=== PATIENT | male | born 1985 | race Two or more races ===

== ENCOUNTER 2025-05-20 05:56 | Emergency (ER) | payer MEDICAID, SELFPAY ==
--- NOTE | ~2025-05-20 | XR_ITS ---
CLINICAL HISTORY: pain - PT UNABLE TO REMOVE BRACELETS FOR EXAM 2 views right forearm Comparison: None Findings: Nondisplaced hairline fracture distal shaft of the ulna No periostitis or bony destruction. Normal bone mineraliztion and soft tissues. Bracelets were not removed obscuring the wrist and distal radius and ulna Impression: 1. Nondisplaced hairline fracture mid to distal shaft of the ulna This document has been electronically signed by: Ori Bernard MD on 05/20/2025 07:14:59
[2025-05-20 06:01] VITALS: BP 171/72; PULSE 88; RESP 20; TEMP 36.4; O2SAT 97; BMI 27.7
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
[2025-05-20 08:20] VITALS: BP 150/65; PULSE 74; RESP 18; TEMP 36.8; O2SAT 95
[2025-05-20 09:47] VITALS: BP 150/65; PULSE 74; RESP 18; TEMP 36.8; O2SAT 95
== END 2025-05-20 09:48 | disposition home or self-care (01) ==
PROVIDERS: Emergency Provider Emergency Medicine
DX: S52.201A Unspecified fracture of shaft of right ulna, initial encounter for closed fracture (principal); W22.09XA Striking against other stationary object, initial encounter; Y93.89 Activity, other specified; Y92.89 Other specified places as the place of occurrence of the external cause; Y99.9 Unspecified external cause status; M79.601 Pain in right arm
CPT/HCPCS: 73090; 96372; 99284; J1885

== ENCOUNTER → 2025-05-20 06:10 | Outpatient (BNV) | payer MEDICAID, SELFPAY | PROVIDERS: Emergency Provider Emergency Medicine; Visit Provider Radiology Diagnostic Radiology | DX: S52.601A Unspecified fracture of lower end of right ulna, initial encounter for closed fracture (principal) | CPT/HCPCS: 73090 ==

== ENCOUNTER 2025-05-25 10:41 | Outpatient (AMB) | payer MEDICAID, SELFPAY ==
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
[2025-05-25 11:00] VITALS: BMI 27.7
== END 2025-05-25 13:21 | disposition home or self-care (01) ==
LOC: HO.HOS 10:42
PROVIDERS: Visit Provider Orthopaedic Surgery
DX: S52.201A Unspecified fracture of shaft of right ulna, initial encounter for closed fracture (principal)
CPT/HCPCS: 25530; 99204

== ENCOUNTER → 2025-05-25 10:43 | Outpatient (BNV) | payer MEDICAID, SELFPAY | PROVIDERS: Visit Provider Radiology Diagnostic Radiology | DX: S52.221A Displaced transverse fracture of shaft of right ulna, initial encounter for closed fracture (principal) | CPT/HCPCS: 73090 ==

== ENCOUNTER 2025-05-25 13:31 | Outpatient (REF) | payer MEDICAID, SELFPAY ==
--- NOTE | ~2025-05-25 | XR_ITS ---
EXAMINATION: XR FOREARM, RIGHT CLINICAL INFORMATION: S52.201A - Unspecified fracture of shaft of right ulna, initial encounte... COMPARISON: 03/20/2025 TECHNIQUE: AP and lateral views of the right forearm were obtained. FINDINGS: Again seen is a transverse fracture through the ulna involving the distal end of the middle third diaphysis without step-off or angular deformity. No periosteal new bone formation is identified. XR/XR forearm RT 2V IMPRESSION: Stable nondisplaced transverse fracture involving the ulna near the junction of the middle third and distal third diaphysis. Electronically signed by: Boy Garcia MD 05/25/2025 10:59 AM FARZANA
== END 2025-05-25 13:32 | disposition home or self-care (01) ==
LOC: HO.HOSX 13:31
PROVIDERS: Visit Provider Orthopaedic Surgery
DX: S52.201A Unspecified fracture of shaft of right ulna, initial encounter for closed fracture (principal); W22.8XXA Striking against or struck by other objects, initial encounter
CPT/HCPCS: 25530; 73090; 99202

== ENCOUNTER 2025-06-09 09:04 | Outpatient (AMB) | payer MEDICAID, SELFPAY ==
[2025-06-09 09:33] VITALS: BMI 27.7
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
== END 2025-06-09 10:15 | disposition home or self-care (01) ==
LOC: HO.HOS 09:04
PROVIDERS: Visit Provider Orthopaedic Surgery
DX: S52.201A Unspecified fracture of shaft of right ulna, initial encounter for closed fracture (principal)
CPT/HCPCS: 99024

== ENCOUNTER 2025-06-09 09:04 | Outpatient (REF) | payer MEDICAID, SELFPAY ==
--- NOTE | ~2025-06-09 | XR_ITS ---
EXAMINATION: XR FOREARM, RIGHT CLINICAL INFORMATION: S52.201A - Unspecified fracture of shaft of right ulna, initial encounte... COMPARISON: Radiographs on May 25, 2025 TECHNIQUE: AP and lateral views of the right forearm were obtained. FINDINGS: Follow-up of transverse fracture through the distal end of the middle third diaphysis of the ulna, with evidence of healing with minimal early periosteal new bone formation. XR/XR forearm RT 2V IMPRESSION: Healing nondisplaced transverse fracture involving the ulnar near the junction of the middle third and distal third diaphysis. Electronically signed by: Pete Truong MD 06/09/2025 11:03 AM FARZANA
== END 2025-06-09 09:05 | disposition home or self-care (01) ==
LOC: HO.HOSX 09:04
PROVIDERS: Visit Provider Orthopaedic Surgery
DX: S52.201D Unspecified fracture of shaft of right ulna, subsequent encounter for closed fracture with routine healing (principal)
CPT/HCPCS: 73090; 99212

== ENCOUNTER → 2025-06-09 09:25 | Outpatient (BNV) | payer MEDICAID, SELFPAY | PROVIDERS: Visit Provider Radiology Body Imaging | DX: S52.221D Displaced transverse fracture of shaft of right ulna, subsequent encounter for closed fracture with routine healing (principal) | CPT/HCPCS: 73090 ==

== ENCOUNTER 2025-06-09 21:26 | Emergency (ER) | payer MEDICAID, SELFPAY ==
--- NOTE | 2025-06-09 | ECG_ITS ---
Test Reason : HYPERTESIVE Blood Pressure : */* mmHG Vent. Rate : 72 BPM Atrial Rate : 72 BPM P-R Int : 146 ms QRS Dur : 78 ms QT Int : 358 ms P-R-T Axes : 43 29 33 degrees QTcB Int : 392 ms Normal sinus rhythm Borderline ECG No previous ECGs available Referred By: Generic ED Physician Electronically Signed By: Ryan Du
[2025-06-09 21:32] VITALS: BP 150/80; PULSE 88; O2SAT 96; BMI 25.1
--- NOTE | 2025-06-09 21:45 | PC.NURSE ---
safety check conducted- no items of concern.
[2025-06-09 22:17] VITALS: BP 119/76; PULSE 78; RESP 12; TEMP 36.7; O2SAT 97
--- NOTE | 2025-06-09 23:20 | ED.ALCOHOL ---
HPI - Alcohol General Chief Complaint: ETOH/Substance Use Stated Complaint: Substance use A&O x4 GCS 15 pulled over by curriculum specialist Time Seen by Provider: 06/09/25 23:10 Source: patient and EMS Mode of arrival: EMS Limitations: no limitations History of Present Illness ED Provider: Dr. Renetta Avila HPI narrative: Patient comes to the emergency room reporting not feeling well after using until dose in marijuana. According to the patient, patient was stopped by state police, admitted that he has been is marijuana an Abrahan dust, patient states that overall he does not feel well and accepted to come to the emergency room. Patient denies SI or HI. Patient denies any injuries Related Data Home Medications ?Medication ?Instructions ?Recorded ?Confirmed No Known Home Meds 05/25/25 Allergies Allergy/AdvReac Type Severity Reaction Status Date / Time No Known Allergies Allergy Verified 06/09/25 21:36 Review of Systems Review of Systems: Constitutional : No Weight loss, No Fever, No Chills, No Night Sweats, No Fatigue, patient reports generalized malaise after using drugs and into dust ENT/Mouth : No Hearing loss, No Ear Pain, No Nasal Congestion, No Sinus Pain, No Hoarseness, No sore throat, No Rhinorrhea, No Swallowing Difficulty Eyes: No Eye Pain, No Swelling, No Redness, No Foreign Body, No Discharge, No Vision Changes Cardiovascular : No Chest Pain, No SOB, No Dyspnea on Exertion, No Orthopnea, No Edema, No Palpitations Respiratory : No Cough, No Sputum, No Wheezing, No Smoke Exposure, No Dyspnea Gastrointestinal : No Nausea, No Vomiting, No Diarrhea, No Constipation, No abdominal Pain, No Hematochezia, No Melena Genitourinary : no irregular bleeding, No Dysuria, No Urinary Frequency, No Hematuria, No Urinary Incontinence, No Urgency, No Flank Pain, No Urinary Flow Changes, No Hesitancy Musculoskeletal : No joint pain, No Myalgias, No Joint Swelling Skin : No Skin Lesions, No rash Neuro : No Weakness, No Numbness, No Paresthesias, No Loss of Consciousness, No Dizziness, No Headache Psych : No Anxiety/Panic, No Depression, No SI/HI/AH/VH, admits to smoking marijuana, using Abrahan dust Heme/Lymph: No Bruising, No Bleeding,No Lymphadenopathy Endocrine : No Polyuria, No Polydipsia, No Temperature Intolerance PMFSH Past Medical History Surgical History Hx of hand surgery Social History Social History Patient Tobacco Use Status: Current everyday Tobacco user Smoked in Last 30 Days: Yes Use of substances other than those prescribed or required for medical reasons: Yes Substance Use Type: Marijuana and Other Substance Use Type Other:: abrahan dust Advance Directives: No Advance Directives Information Provided: No Do you have a plan to hurt others: No Plan Current occupational status: unemployed Current occupation: right hand dominant Physical Exam ED Exam Exam: Appearance: Alert. Oriented X3. No acute distress. Coherent, somnolent but easily arousable Eyes: Pupils equal, round and reactive to light. ENT: Pharynx normal. Neck: Normal inspection. Neck supple. No lymph nodes noted. No crepitus CVS: Normal heart rate and rhythm. Pulses normal. Normal S1 and S2 Respiratory: No respiratory distress. Breath sounds normal. No Wheezing. No rales Abdomen: Soft and nontender. No rigidity. No distention. Skin: Skin warm and dry. Normal skin color. Normal skin turgor. Extremities: No lower extremity edema. No Lacerations. No Rash Neuro: Oriented X 3. No motor deficit. No sensory deficit. Moving all extremities. No slurred speech. CN 2 through 12 grossly intact Psych: calm, cooperative, normal affect Vital Signs: Vital Signs - 24 hr 06/09/25 22:17 06/10/25 00:13 06/10/25 02:50 Temperature 98.1 F 97.7 F 97.7 F Pulse Rate 78 65 70 Respiratory Rate 12 14 16 Blood Pressure 119/76 136/91 H 127/86 Pulse Oximetry 97 98 98 Oxygen Delivery Method Room Air Room Air Room Air 06/10/25 06:07 06/10/25 06:52 06/10/25 08:54 Temperature 97.5 F 97.7 F Pulse Rate 66 64 81 Respiratory Rate 16 16 Blood Pressure 138/83 158/87 H Pulse Oximetry 98 97 98 Oxygen Delivery Method Room Air Room Air Room Air BMI result Body Mass Index 25.1 Course Course Course Narrative: Patient denies any injuries, admits to using Abrahan dust and marijuana Denies SI or HI Patient very somnolent. Easily arousable Vitals are stable Patient declines talking to the recovery team Plan: Metabolize to freedom Reevaluation(s) Reevaluation #1: 8:58 AM 06/10/2025 (Dr. Ricky Field): At this point alert oriented, ambulating with a steady gait and was able to take in p.o., ready for discharge Medical Decision Making Lab Data Labs: Lab Results 06/10/25 Range/Units 02:46 Urine Opiates Screen Not Detected (Not Detect) Ur Buprenorphine Scrn Not Detected (Not Detect) ng/mL Ur Oxycodone Screen Not Detected (Not Detect) ng/mL Urine Methadone Screen Not Detected (Not Detect) ng/mL Urine Fentanyl Screen POSITIVE H (Not Detect) Ur Barbiturates Screen Not Detected (Not Detect) Ur Phencyclidine Scrn POSITIVE H (Not Detect) Ur Amphetamines Screen Not Detected (Not Detect) U Benzodiazepines Scrn Not Detected (Not Detect) Urine Cocaine Screen POSITIVE H (Not Detect) U Marijuana (THC) Screen POSITIVE H (Not Detect) Critical Care Time Critical Care Time Critical Care Time: Yes Total Critical Care Time: 35 Attestation: I have personally provided critical care time. Time includes review of lab data, radiology results, discussion with consultants, and monitoring for potential decompensation. Intervention performed as documented. Discharge Plan Discharge Clinical Impression: Abrahan dust abuse Patient Disposition: Home, Self-Care Instructions: Polysubstance Use Disorder (ED) Additional Instructions: Alcohol use disorder You were seen in the Emergency Department today for treatment of alcohol use disorder.? You may have been given medications to help with your withdrawal symptoms.? Please do not drink alcohol with them. This is very dangerous and can cause respiratory depression or other adverse reactions depending on the medication. If you would like to cut down or stop your alcohol use please consider calling our outpatient Addiction Treatment office:? [facility] (M-F 9a-5p) [address] You have also been given a list of treatment providers in the area that can assist as well.? If you experience seizures, vomiting blood, black stools, falls, severe headache, chest pain, fevers, trouble breathing, hallucinations or any other concerns you need to call 911 or seek immediate care. Please stay hydrated. Prescriptions: No Action No Known Home Meds Print Language: Romansh
[2025-06-10 00:13] VITALS: BP 136/91; PULSE 65; RESP 14; TEMP 36.5; O2SAT 98
[2025-06-10 02:50] VITALS: BP 127/86; PULSE 70; RESP 16; TEMP 36.5; O2SAT 98
[2025-06-10 04:40] LABS: Cannabinoid Screen Urine POSITIVE (Not Detect)
[2025-06-10 06:07] VITALS: BP 138/83; PULSE 66; RESP 16; TEMP 36.4; O2SAT 98
[2025-06-10 06:52] VITALS: PULSE 64; O2SAT 97
--- NOTE | 2025-06-10 06:53 | PC.NURSE ---
Care of Pt assumed at change of shift. Pt is noted to be resting comfortably with eyes closed. O2 sat WNL on room air. NAD noted. Will continue to monitor.
--- NOTE | 2025-06-10 08:47 | PC.NURSE ---
Pt is now awake and talking on his cell phone. NAD noted. Breaths and speech are unlabored. Provider notified.
[2025-06-10 08:54] VITALS: BP 158/87; PULSE 81; RESP 16; TEMP 36.5; O2SAT 98
[2025-06-10 09:04] VITALS: BP 158/87; PULSE 81; RESP 16; TEMP 36.5; O2SAT 98
--- NOTE | 2025-06-10 09:04 | PC.NURSE ---
Pt reports he is feeling well at this time and would like to be d/c'd. Pt is A&Ox3 VSS Breaths and speech are unlabored. Pt provided with food and beverage. Safe and steady gait noted. NAD at this time. Pt cleared for d/c.
== END 2025-06-10 09:04 | disposition home or self-care (01) ==
PROVIDERS: Emergency Provider Emergency Medicine
DX: F16.10 Hallucinogen abuse, uncomplicated (principal); F12.90 Cannabis use, unspecified, uncomplicated
CPT/HCPCS: 80307; 93005; 99285

== ENCOUNTER → 2025-06-09 22:44 | Outpatient (BNV) | payer MEDICAID, SELFPAY | PROVIDERS: Emergency Provider Emergency Medicine; Visit Provider Internal Medicine Cardiovascular Disease | DX: I10 Essential (primary) hypertension (principal) | CPT/HCPCS: 93010 ==

== ENCOUNTER 2025-06-30 13:30 | Outpatient (AMB) | payer MEDICAID, SELFPAY ==
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
[2025-06-30 13:45] VITALS: BMI 25.1
--- OUTSIDE RECORDS SUMMARY | 2025-06-30 17:40 | XMS_ITS | Clinical Summary ---
Author Organization [facility] Address [address] [place] [address] Phone Care Team Providers Care Brim Shaper Name Role Phone Physician, Pcp Unknown Primary Care Provider Esther vailable Allergies No known active allergies Encounters Date Type Department Care Team Description 06/17/2025 3:32 AM EST - 06/17/2025 5:14 AM EST Emergency [facility] Emergency [address] [place] [address] Right wrist pain (Primary Dx); Closed displaced oblique fracture of shaft of right ulna with routine healing, subsequent encounter Discharge Disposition: Home or Self Care from Last 3 Months Social History Tobacco Use Types Packs/Day Years Used Date Smoking Tobacco: Unknown Tobacco Cessation:Counseling Given: Not Answered Sex and Gender Information Value Date Recorded Sex Assigned at Not on file Legal Sex Male 2:58 AM EST Gender Identity Not on file Sexual Orientation Not on file Last Filed Vital Signs Vital Sign Reading Time Taken Comments Blood Pressure 167/97 06/17/2025 3:02 AM EST Pulse 87 06/17/2025 3:02 AM EST Temperature 36.7 C (98 F) 06/17/2025 3:02 AM EST Respiratory Rate 18 06/17/2025 3:02 AM EST Oxygen Saturation 98% 06/17/2025 3:02 AM EST Inhaled Oxygen Concentration - - Weight 83 kg (183 lb) 06/17/2025 3:00 AM EST Height 177.8 cm (5' 10 ) 06/17/2025 3:00 AM EST Body Mass Index 26.26 06/17/2025 3:00 AM EST Plan of Treatment Health Maintenance Due Date Last Done Comments DTaP,Tdap,and Td Vaccines (1 - Tdap) 2004 Hepatitis B Vaccines (1 of 3 - 19+ 3-dose series) 2004 HPV Vaccines (1 - 3-dose SCD M series) 2012 Depression Screening 07/15/2024 COVID-19 Vaccine (1 - 2024-2 6 season) 2025 Influenza Vaccine (#1) 2025 Cholesterol Screening (Lipid Panel) 06/17/2025 HIV Screening 06/17/2025 Hepatitis C Screening 06/17/2025 Social Influencers of Health Screening 06/17/2025 RSV Immunization Adult Patie nts (1 - 1-dose 75+ series) 2060 HIB Vaccines Aged Out No longer eligi ble based on patient's age to complete this topic Hepatitis A Vaccines Aged Out No long er eligible based on patient's age to complete this topic IPV Vaccines Aged Out No longer eligi ble based on patient's age to complete this topic MMR Vaccines Aged Out No longer eligi ble based on patient's age to complete this topic Meningococcal ACWY Vaccine Aged Out N o longer eligible based on patient's age to complete this topic Meningococcal B Vaccine Aged Out No l onger eligible based on patient's age to complete this topic Pneumococcal Vaccine: Pediat rics (0 to 5 Years) and At-Risk Patients (6 to 49 Years) Aged Out No longer eligible b ased on patient's age to complete this topic RSV Immunization Patients Un vern 20 months Aged Out No longer eligible b ased on patient's age to complete this topic Varicella Vaccines Aged Out No longer eligible based on patient's age to complete this topic Procedures Procedure Name Priority Date/Time Associated Diagnosis Comments XR FOREARM 2 VIEWS RIGHT STAT 06/17/2025 3:55 AM EST from Last 3 Months Results * XR Forearm 2 Views Right (06/17/2025 3:55 AM EST) Anatomical Region Laterality Modality Upper Extremities, Forearm Right Radio graphic Imaging 06/17/2025 8:43 AM EST Impressions 06/17/2025 8:45 AM EST FINDINGS/IMPRESSION: Healing mid ulnar fracture in near-anatomic alignment. Bony bridging is incomplete. No other fractures. Cast in place. -------- FINAL REPORT -------- Dictated By: KERLINE NOLAN Dictated Date: 06/17/2025 08:43 ET Assigned Physician: KERLINE NOLAN Reviewed and Electronically Signed By: KERLINE NOLAN Signed Date: 06/17/2025 08:45 ET Workstation ID: [id number] Transcribed By: Self Edit Transcribed Date: 06/17/2025 08:43 ET Narrative 06/17/2025 8:45 AM EST XR FOREARM 2 VIEWS RIGHT INDICATION: Pain TECHNIQUE: XR FOREARM 2 VIEWS RIGHT COMPARISON: No priors available. Procedure Note Kerline Nolan MD - 06/17/2025 XR FOREARM 2 VIEWS RIGHT INDICATION: Pain TECHNIQUE: XR FOREARM 2 VIEWS RIGHT COMPARISON: No priors available. IMPRESSION: FINDINGS/IMPRESSION: Healing mid ulnar fracture in near-anatomicalignment. Bony bridging is incomplete. No other fractures. Cast inplace. -------- FINAL REPORT -------- Dictated By: KERLINE NOLAN Dictated Date: 06/17/2025 08:43 ET Assigned Physician: KERLINE NOLAN Reviewed and Electronically Signed By: KERLINE NOLAN Signed Date: 06/17/2025 08:45 ET Workstation ID: [id number] Transcribed By: Self Edit Transcribed Date: 06/17/2025 08:43 ET Betty Houston BLOCK PRESS OPERATOR IMG XR PROCEDURES Final R esult from Last 3 Months Insurance MEDICAID - [place] Care Teams Brim Shaper Relationship Specialty Start Date End Date Physician, Pcp Unknown PCP - General 06/17/25
== END 2025-06-30 15:08 | disposition home or self-care (01) ==
LOC: HO.HOS 13:30
PROVIDERS: Visit Provider Orthopaedic Surgery
DX: S52.201A Unspecified fracture of shaft of right ulna, initial encounter for closed fracture (principal)
CPT/HCPCS: 99024

== ENCOUNTER 2025-06-30 13:30 | Outpatient (REF) | payer MEDICAID, SELFPAY ==
--- NOTE | ~2025-06-30 | XR_ITS ---
EXAMINATION: XR FOREARM, RIGHT CLINICAL INFORMATION: S52.201A - Unspecified fracture of shaft of right ulna, initial encounte... COMPARISON: Previous x-rays most recent May 2025 TECHNIQUE: AP and lateral views of the right forearm were obtained. FINDINGS: Healing nondisplaced transverse fracture of the midshaft of the ulna. Fracture line still seen. Increasing bony callus formation. No other fracture. Normal joint spaces. Small osteophyte at the olecranon. Soft tissues otherwise unremarkable. XR/XR forearm RT 2V IMPRESSION: Healing ulnar shaft fracture. Electronically signed by: Allie Xavier MD 06/30/2025 02:34 PM EST
== END 2025-06-30 13:31 | disposition home or self-care (01) ==
LOC: HO.HOSX 13:30
PROVIDERS: Visit Provider Orthopaedic Surgery
DX: S52.201D Unspecified fracture of shaft of right ulna, subsequent encounter for closed fracture with routine healing (principal); X58.XXXD Exposure to other specified factors, subsequent encounter
CPT/HCPCS: 73090; 99212

== ENCOUNTER → 2025-06-30 13:52 | Outpatient (BNV) | payer MEDICAID, SELFPAY | PROVIDERS: Visit Provider Radiology Diagnostic Radiology | DX: S52.201A Unspecified fracture of shaft of right ulna, initial encounter for closed fracture (principal) | CPT/HCPCS: 73090 ==